=== PATIENT | female | born 1995 | race Caucasian/White ===

== ENCOUNTER 2022-07-24 13:38 | Observation (INO) ==
[2022-07-24] MEDS ORDERED: oxyCODONE HCL IR 5 MG TAB (IMMEDIATE RELEASE) PO STA (13:49)
--- NOTE | 2022-07-24 14:09 | XRay Report ---
XR hip RT min 2V CLINICAL HISTORY: R hip pain s/p fall, h/o stress fx COMPARISON: MRI of the right hip July 06, 2022. Pelvis and right hip radiographs July 17, 2022. FINDINGS: There has been interval development of an acute minimally displaced intertrochanteric frac ture of the right femur with subtrochanteric extension. The right femoral neck stress fracture is bet ter depicted on MRI of July 06, 2022. IMPRESSION: 1. Interval development of an acute minimally displaced intertrochanteric fracture of the right femur with subtrochanteric extension since radiographs of July 17, 2022. 2. Right femoral stress fracture, better depicted on MRI of July 06, 2022. ACT 112: Negative or not required by law. Electronically signed by: Sujit Schofield M.D. 07/24/2022 2:07 PM
[2022-07-24] MEDS ORDERED: ceFAZolin 2000MG 2,000 MG/15 ML SYR IV ONE (15:00)
--- NOTE | 2022-07-24 15:04 | Emergency Department Note ---
ED Provider Note History of Present Illness Chief Complaint: Leg Injury/Pain Stated Complaint: RIGHT LEG INJURY Time Seen by Provider: 07/24/22 13:43 27-year-old female who presents to the emergency department for evaluation of a repeat injury to her right hip. The patient reports that she was at a store and slipped and fell, landing directly onto her right knee. She denies any knee injury or other injuries from her fall, but complains of notable right hip pain. The patient is currently under the management of Dr. Michel ([facility]) for a right femoral neck fracture. She is currently on crutches until 08/07 when she will be reevaluated. The patient denies any pain extending into the back. Weightbearing worsens her pain to a 10 out of 10. Home Medications Medication Instructions Recorded Confirmed Type Bone Strengthing Tablet 1 tab PO DAILY 07/24/22 07/24/22 History Allergies Allergy/AdvReac Type Severity Reaction Status Date / Time No Known Allergies Allergy Verified 07/24/22 14:49 Past Med/Surg History Medical History No significant past medical history Surgical History No significant past surgical history Social History Smoking Status: Never smoker Second Hand Exposure: No; Do You Dip or Chew Tobacco: No; Hx Alcohol Use: No Hx Substance Use: No Preferred Language: Spanish Communication Ability: Effective Wax Cutter Required: No Beliefs That Will Affect Care: None marital status: Single Current Living Situation: Spouse current occupational status: employed Other Information That Helps Us Care for You: No Feels Safe at Home: Yes Safety Concerns: Feels Safe At This Time Assistive Devices: Crutches Physical Exam Vital Signs Vital Signs - 24 hr 07/24/22 13:38 07/24/22 16:13 07/24/22 18:55 Temperature 36.4 C L 36.9 C 36.1 C L Temperature Source Temporal Artery Scan Oral Temporal Artery Scan Pulse Rate 76 Pulse Rate [Apical] 101 H Pulse Rate [Left Finger] 61 Pulse Rhythm [Apical] Regular Pulse Rhythm [Left Finger] Regular Pulse Strength [Left Finger] Normal Respiratory Rate 19 97 H 12 Respiratory Effort / Characteristics Non-Labored Spontaneous Non-Labored Spontaneous Respiratory Depth Normal Normal Respiratory Pattern Regular Regular Blood Pressure 106/71 Blood Pressure [Left Arm] 116/67 Blood Pressure [Right Arm] 111/67 Blood Pressure Mean 82 Blood Pressure Mean [Left Arm] 83 Blood Pressure Mean [Right Arm] 81 Blood Pressure Position [Left Arm] Lying Blood Pressure Position [Right Arm] Lying Pulse Oximetry 99 97 100 Oxygen Delivery Method Room Air Room Air Oxymask Oxygen Flow Rate 6 Sepsis Recent Fever Within 48 Hours No Sepsis New/Unexplained Change in Mental Status N/A Sepsis Action Taken by Nursing No Action Required CONSTITUTIONAL: Healthy and well nourished. Patient appears in moderate discomfort. HEENT: Normocephalic, atraumatic. RESPIRATORY: Clear to auscultation bilaterally with no wheezing, crackles, rhonchi or stridor. CARDIOVASCULAR: Regular rate and rhythm with no murmurs, rubs or gallops. MUSCULOSKELETAL: Examination of the right hip was deferred secondary to patient discomfort. No abrasions to the knee. Pedal pulses are intact INTEGUMENTARY: No rash or other significant dermatologic conditions noted. HEMATOLOGIC: No ecchymosis or petechiae. PSYCHIATRIC: Positive affect. NEUROLOGIC: Right lower extremity is sensory intact. Course Course Patient history and physical exam were performed. Nurses notes were reviewed. Vital signs were reviewed and were normal. The patient initially was administered Oxy IR 5 mg, refusing intramuscular pain management. X-rays of the right hip confirms an intertrochanteric fracture extending to the subt rochanteric region. Radiologist also compared this x-ray with an MRI of 07/06/2022, which is not viewable by me. Findings were discussed with the patient. The patient reports that she last had something to eat around 11 AM. I then reached out to [facility], and spoke with Dr. Lynch who will come to the emergency department for further evaluation, and probable surgical repair. He did request starting IV with baseline labs. He also requested a vitamin D level, however the patient reports that she did have one recently drawn by Dr. Appiah, therefore this will be deferred. The patient refused any additional parenteral analgesics prior to transfer of care to the orthopedic service. Please see other dictation for further treatment and final disposition. I did review labs which were grossly normal. Administered Medications Acetaminophen (Acetaminophen 500 Mg Tab) 1,000 mg PO Q8 OLIVIA Stop: 08/23/22 21:59 Last Admin: 07/24/22 21:06 Dose: 1,000 mg Documented By: KSC Docusate Sodium (Docusate Sodium 100 Mg Cap) 100 mg PO BID OLIVIA Stop: 08/23/22 20:59 Last Admin: 07/24/22 20:35 Dose: Not Given Documented By: KSC Sodium Chloride (Nss 1000ml) 1,000 mls @ 100 mls/hr IV .Q10H OLIVIA Stop: 07/25/22 06:00 Last Admin: 07/24/22 20:33 Dose: 100 mls/hr Documented By: KSC Ketorolac Tromethamine (Ketorolac 30 Mg/Ml Vial) 30 mg IV Q6H OLIVIA Stop: 07/25/22 15:01 Last Admin: 07/24/22 20:31 Dose: 30 mg Documented By: KSC Sennosides (Senna 8.6 Mg Tab) 17.2 mg PO HS OLIVIA Stop: 08/23/22 20:59 Last Admin: 07/24/22 20:35 Dose: Not Given Documented By: [facility] [place] Discontinued Medications Bupivacaine HCl (Bupivacaine 0.5 % 5 Mg/1 Ml Mpf 30ml Vial) Confirm Administered Dose 30 ml .ROUTE .STK-MED ONE Stop: 07/24/22 16:38 Last Admin: 07/24/22 18:30 Dose: 30 ml Documented By: [facility] Cefazolin Sodium (Cefazolin 330 Mg/Ml 1 Gm Vial) 1,000 mg IV ONCE ONE; Protocol Stop: 07/24/22 18:30 Last Admin: 07/24/22 17:17 Dose: 1,000 mg Documented By: BLB Fentanyl Citrate (Fentanyl Citrate Pf 100 Mcg/2 Ml Vial) 25 mcg IV Q5M PRN PRN Reason: PACU Use Only-Pain Stop: 07/24/22 23:06 Last Admin: 07/24/22 19:20 Dose: 25 mcg Documented By: Admin: 07/24/22 19:15 Dose: 25 mcg Documented By: Admin: 07/24/22 19:10 Dose: 25 mcg Documented By: Admin: 07/24/22 19:05 Dose: 25 mcg Documented By: [facility] Cefazolin Sodium (Ancef 2000mg) 2,000 mg in 15 mls @ 3.75 mls/min IV PREOP ONE; Protocol Stop: 07/24/22 15:03 Last Admin: 07/24/22 15:07 Dose: 3.75 mls/min Documented By: HILDA Oxycodone HCl (Oxycodone Hcl Ir 5 Mg Tab (Immediate Release)) 5 mg PO NOW STA Stop: 07/24/22 13:50 Last Admin: 07/24/22 14:19 Dose: 5 mg Documented By: MATTHEW Medical Decision Making Medical Records Attestation: I reviewed the patient's medical records. Home Medications was personally reviewed by me Laboratory Data Attestation: I reviewed the patient's lab results. 07/24/22 14:42 07/24/22 14:42 Lab Results 07/24/22 07/24/22 07/24/22 Range/Units 14:42 14:42 14:42 WBC 5.61 (4.8-10.8) K/ul RBC 4.21 (4.20-5.40) M/uL Hgb 13.3 (12.0-16.0) g/dl Hct 37.6 (37.0-47.0) % MCV 89.3 (80.0-100.0) fL MCH 31.6 (25.0-34.0) pg MCHC 35.4 (32.0-36.0) g/dL RDW Std Deviation 37.0 (36.4-46.3) fL RDW Coeff of Taylor 11.4 L (11.5-14.5) % Plt Count 251 (130-400) K/uL MPV 9.3 L (9.4-12.4) fL PT (9.0-12.0) Seconds INR (0.9-1.1) APTT (21.0-31.0) Seconds PTT Ratio Sodium 140 (136-145) mmol/L Potassium 4.0 (3.5-5.1) mmol/L Chloride 104 (98-107) mmol/L Carbon Dioxide 29 (21-32) mmol/L Anion Gap 7 (3-11) BUN 15 (6-23) mg/dl Creatinine 0.78 (0.6-1.2) mg/dl Est Cr Clr Drug Dosing 102.3 ml/min Est GFR ( Amer) 121.6 ml/min Est GFR (Non-Af Amer) 104.9 ml/min BUN/Creatinine Ratio 19.2 (10-20) Glucose 115 H (70-99(Fasting)) mg/dl Calcium 9.9 (8.6-10.3) mg/dl Total Bilirubin 0.4 (0.2-1.0) mg/dl AST 25 (13-39) U/L ALT 12 (7-52) U/L Alkaline Phosphatase 60 (34-104) U/L Total Protein 7.6 (6.0-8.3) gm/dl Albumin 4.6 (3.4-5.0) gm/dl Globulin 3.0 (2.5-4.0) gm/dl Albumin/Globulin Ratio 1.5 (0.9-2) POC Ur Test (NEG) SARS-CoV-2, RNA, NAAT (NEGATIVE) Blood Type B Positive Antibody Screen NEGATIVE 07/24/22 07/24/22 07/24/22 Range/Units 14:42 15:08 15:48 WBC (4.8-10.8) K/ul RBC (4.20-5.40) M/uL Hgb (12.0-16.0) g/dl Hct (37.0-47.0) % MCV (80.0-100.0) fL MCH (25.0-34.0) pg MCHC (32.0-36.0) g/dL RDW Std Deviation (36.4-46.3) fL RDW Coeff of Taylor (11.5-14.5) % Plt Count (130-400) K/uL MPV (9.4-12.4) fL PT 11.1 (9.0-12.0) Seconds INR 1.0 (0.9-1.1) APTT 21.9 (21.0-31.0) Seconds PTT Ratio 0.8 Sodium (136-145) mmol/L Potassium (3.5-5.1) mmol/L Chloride (98-107) mmol/L Carbon Dioxide (21-32) mmol/L Anion Gap (3-11) BUN (6-23) mg/dl Creatinine (0.6-1.2) mg/dl Est Cr Clr Drug Dosing ml/min Est GFR ( Amer) ml/min Est GFR (Non-Af Amer) ml/min BUN/Creatinine Ratio (10-20) Glucose (70-99(Fasting)) mg/dl Calcium (8.6-10.3) mg/dl Total Bilirubin (0.2-1.0) mg/dl AST (13-39) U/L ALT (7-52) U/L Alkaline Phosphatase (34-104) U/L Total Protein (6.0-8.3) gm/dl Albumin (3.4-5.0) gm/dl Globulin (2.5-4.0) gm/dl Albumin/Globulin Ratio (0.9-2) POC Ur Test NEG (NEG) SARS-CoV-2, RNA, NAAT NEGATIVE (NEGATIVE) Blood Type Antibody Screen Imaging Data Attestation: I personally reviewed and interpreted this imaging study as follows: My Impression: My interpretation of a right hip x-ray confirms an intertrochanteric fracture extending to the subtrochanteric region. No hip dislocation noted. Radiologist report was also reviewed with concurrence. Radiologist's Impression: Hip X-Ray 07/24/22 13:49 XR hip RT min 2V CLINICAL HISTORY: R hip pain s/p fall, h/o stress fx COMPARISON: MRI of the right hip July 06, 2022. Pelvis and right hip radiographs July 17, 2022. FINDINGS: There has been interval development of an acute minimally displaced intertrochanteric fracture of the right femur with subtrochanteric extension. The right femoral neck stress fracture is better depicted on MRI of July 06, 2022. IMPRESSION: 1. Interval development of an acute minimally displaced intertrochanteric fracture of the right femur with subtrochanteric extension since radiographs of July 17, 2022. 2. Right femoral stress fracture, better depicted on MRI of July 06, 2022. ACT 112: Negative or not required by law. Electronically signed by: Sujit Schofield M.D. 07/24/2022 2:07 PM [facility] Narrative See ED Course section for further details of today's visit. The patient suffered a right hip fracture after slipping and falling onto her right anterior knee. The patient did previously have a stress fracture of the femoral neck that was being managed by Dr. Michel, and is currently on nonweightbearing status. Today's x-ray shows a new intertrochanteric fracture extending to the subtrochanteric region. The case was further discussed with Dr. Lynch, who will be taking the patient to the OR for surgical management. Impression Fracture of proximal end of right femur, Fall from slip, trip, or stumble Discharge Plan Visit Data Chief Complaint: Leg Injury/Pain Stated Complaint: RIGHT LEG INJURY ED Provider: Victor Manuel Hallman ED Midlevel Provider: Jeison Cadena Discharge Problem: Fracture of proximal end of right femur, Fall from slip, trip, or stumble Discharge Instructions Interventions: ED Discharge Assessment Last Done: 07/24/22 15:52 Fracture of proximal end of right femur Qualifiers: Encounter type: initial encounter Fracture type: closed Qualified Code(s): S72.001A - Fracture of unspecified part of neck of right femur, initial encounter for closed fracture Fall from slip, trip, or stumble Qualifiers: Encounter type: initial encounter Qualified Code(s): W01.0XXA - Fall on same level from slipping, tripping and stumbling without subsequent striking against object, initial encounter
[2022-07-24] MEDS ORDERED: ATROPINE SULFATE 0.1 MG/ML 10ML SYR IV PRN (15:06)
[2022-07-24] MEDS ORDERED: HYDROmorphone INJ 1 MG/ML SYRINGE IV PRN (15:06)
[2022-07-24] MEDS ORDERED: ePHEDrine sulfate 50 MG/ML AMP IV PRN (15:06)
[2022-07-24] MEDS ORDERED: ONDANSETRON INJ 2 MG/ML 2 ML VIAL IV PRN ×2 (15:06→20:05)
--- NOTE | 2022-07-24 15:06 | Anesthesiology Consultation ---
Date of Service July 24, 2022 Assessment & Plan (1) Encounter for pre-operative examination: Chart Review Chart Review: Acceptable Risk for Surgery and Patient NOT seen in Pre Admission Testing Consults Requested none History Surgery Operation Date: 07/24/22 12:30 Proposed Procedures p Intramedullary Bijan Right Femur Fracture - Domenic Lynch MD Height/Weight Height: 5 ft 6 in Allergies Allergy/AdvReac Type Severity Reaction Status Date / Time No Known Allergies Allergy Verified 07/24/22 14:49 Medications Home Medications Medication Instructions Recorded Confirmed Last Taken Bone Strengthing Tablet 1 tab PO DAILY 07/24/22 07/24/22 07/24/22 Past Medical History Medical History No significant past medical history Past Surgical History Surgical History No significant past surgical history Social History Smoking Status: Never smoker Physical Exam Vital Signs Last Vital Signs Temp 97.5 F L 07/24/22 13:38 Pulse 76 07/24/22 13:38 Resp 19 07/24/22 13:38 BP 106/71 07/24/22 13:38 Pulse Ox 99 07/24/22 13:38 O2 Del Method Room Air 07/24/22 13:38
[2022-07-24 15:09] LABS: Hematocrit (blood only) 37.6 % (37.0-47.0); Hemoglobin 13.3 g/dl (12.0-16.0); Mean Corpuscular Hemoglobin 31.6 pg (25.0-34.0); Mean Corpuscular Hgb Conc 35.4 g/dL (32.0-36.0); Mean Corpuscular Volume 89.3 fL (80.0-100.0); Mean Platelet Volume 9.3 fL (9.4-12.4); Platelet Count 251 K/uL (130-400); RDW Coefficient of Variation 11.4 % (11.5-14.5); Red Blood Count 4.21 M/uL (4.20-5.40); White Blood Count 5.61 K/ul (4.8-10.8)
--- NOTE | 2022-07-24 15:38 | Orthopedic Consultation ---
Date of Consultation July 24, 2022 Assessment & Plan (1) Fracture of proximal end of right femur: I discussed the x-ray findings with the patient and her significant other. Surgery was the recommended treatment for this injury since nonsurgical treatment would result in a higher risk of malunion, avascular necrosis and possible early arthritis, as well as limited mobility resulting in increased risk of blood clots. Surgical plan would be open reduction internal fixation with an intramedullary lazaro. I reviewed the risks and benefits of the surgery at length. All questions were answered. Patient elects to proceed with surgery. Informed consent was signed. Plan on proceeding to the operating room on an urgent basis. She did eat a bowl of oatmeal at 11 AM, and so has not been n.p.o. for 8 hours, however given that her clinical history is that of a displaced femoral neck stress fracture even t delon her x-rays show more of an intertrochanteric fracture, I think in order to decrease risk of avascular necrosis, it is in her best interest that we except the slightly increased risk of anesthetic complications and proceed to the operating room as soon as we are set up and ready to go. Plan on admitting the patient to the hospital overnight after surgery. History of Present Illness Reason for Consultation: Right femur fracture History of Present Illness 27-year-old female, patient of my partner Dr. Michel, has been treated for a nondisplaced right femoral neck stress fracture with nonweightbearing on crutches. She was seen as recently as a week ago at which time x-rays were showing interval healing of her fracture and she was instructed to maintain nonweightbearing on her crutches until her next follow-up evaluation. She was also find to have low vitamin D level which she has been supplementing with vitamin D3. Unfortunately around 1 PM today she was going into a nail salon when she slipped and fell directly onto her right knee. She had immediate onset of pain in her right hip. She was brought to the emergency room. X-rays were obtained demonstrating slight displacement of the fracture with extension into the subtrochanteric region. Orthopedics was consulted for evaluation and management. Patient was seen and examined in the emergency room. She reports that prior to slipping and falling she was completely pain-free in her hip. She denies any numbness or tingling down her leg. Denies any personal or family history of blood clots. She is very active working at [employer], enjoys running and playing sports and desires to get back to these activities. Allergies Allergy/AdvReac Type Severity Reaction Status Date / Time No Known Allergies Allergy Verified 07/24/22 14:49 Home Medications Medication Instructions Recorded Confirmed Type Bone Strengthing Tablet 1 tab PO DAILY 07/24/22 07/24/22 History Patient History Medical History No significant past medical history Surgical History No significant past surgical history Social History Smoking Status: Never smoker Preferred Language: Filipino marital status: Single current occupational status: employed Feels Safe at Home: Yes Review of Systems Review of Systems: Negative except as noted in the HPI. Physical Exam Physical Exam: In general she is resting comfortably in bed, tearful and somewhat anxious which is not unexpected. Alert and oriented x3. Right lower extremity exam reveals no obvious shortening or rotational abnormalities of the leg. Her skin is intact throughout. She wiggles her toes and dorsi and plantar flexes her ankle without difficulty. She is sensory intact to light touch throughout the right lower extremity. Results & Data Vital Signs (Past 12 Hours) Vital Signs Temp Pulse Resp BP Pulse Ox O2 Del Method 07/24/22 13:38 36.4 C L 76 19 106/71 99 Room Air Diagnostic Findings X-rays done today in the emergency room are reviewed. I also reviewed her previous x-rays and MRI. On her current films she has what appears to be a intertrochanteric femur fracture with subtrochanteric extension and mild displacement. However on her previous MRI the fracture was more into the femoral neck region rather than the intertrochanteric region.
[2022-07-24 15:39] LABS: Albumin Globulin Ratio 1.5 (0.9-2); Albumin Level 4.6 gm/dl (3.4-5.0); BUN Creatinine Ratio 19.2 (10-20); Bilirubin,Total 0.4 mg/dl (0.2-1.0); Calcium 9.9 mg/dl (8.6-10.3); Creatinine Clr Calc Pharmacy 102.3 ml/min; Est GFR (African American) 121.6 ml/min; Est GFR (Non-African American) 104.9 ml/min; Total Protein 7.6 gm/dl (6.0-8.3)
[2022-07-24] MEDS ORDERED: MIDAZOLAM HCL 1 MG/ML 2ML VIAL ONE (15:58)
[2022-07-24] MEDS ORDERED: ROCURONIUM BROMIDE 10 MG/ML 5 ML VIAL IV ONE (15:58)
[2022-07-24] MEDS ORDERED: fentaNYL citrate PF 100 MCG/2 ML VIAL ONE ×2 (15:58→18:39)
[2022-07-24] MEDS ORDERED: ONDANSETRON INJ 2 MG/ML 2 ML VIAL ONE ×2 (15:58→18:02)
[2022-07-24] MEDS ORDERED: LIDOCAINE 2% 2 ML VIAL/AMP(20MG/ML) INFIL ONE (15:58)
[2022-07-24] MEDS ORDERED: SUCCINYLCHOLINE CHLORIDE 20 MG/ML 10 ML VIAL IV ONE (15:58)
[2022-07-24] MEDS ORDERED: PROPOFOL IV EMULSION 10 MG/ML 20 ML VIAL IV ONE (15:58)
[2022-07-24] MEDS ORDERED: DEXAMETHASONE SOD INJ 4 MG/ML VIAL ONE (15:58)
[2022-07-24] MEDS ORDERED: BUPIVACAINE 0.5 % 5 MG/1 ML MPF 30ML VIAL ONE (16:37)
[2022-07-24] MEDS ORDERED: PHENYLEPHRINE 100MCG/ML 5ML SYR ONE (18:02)
[2022-07-24] MEDS ORDERED: GLYCOPYRROLATE 0.2 MG/ML VIAL ONE (18:21)
[2022-07-24] MEDS ORDERED: NEOSTIGMINE METHYLSULFATE 1 MG/ML 10ML VIAL ONE (18:21)
[2022-07-24] MEDS ORDERED: ceFAZolin 330 MG/ML 1 GM VIAL IV ONE (18:29)
--- NOTE | 2022-07-24 18:46 | Operative Report ---
Post Operative Report Pre & Post Diagnosis Operation Date: 07/24/22 12:30 Preoperative diagnosis: Displaced right femoral neck stress fracture with intertrochanteric and subtrochanteric extension Postoperative diagnosis: Displaced right femoral neck stress fracture with intertrochanteric and subtrochanteric extension I identified the patient and participated in the time-out.: Yes Procedure Operation Date: 07/24/22 12:30 Open reduction internal fixation Displaced right femoral neck stress fracture with intertrochanteric and subtrochanteric extension using an intramedullary lazaro Surgeon Domenic Lynch MD Mirror Framer Benjamín Gibson PA-C Estimated Blood Loss 25 Findings Consistent with Post-Op Diagnosis Specimens None Anesthesia Type General Complications none Disposition Disposition: Recovery Room Indications 27-year-old female, being treated for a nondisplaced right femoral neck stress fracture on crutches nonweightbearing, slipped and fell today around 1 PM. She had immediate onset of right hip pain. Brought to the emergency room where x- rays demonstrated displacement of her femoral neck stress fracture with intertrochanteric and subtrochanteric extension. I had a long discussion with the patient and her significant other regarding the diagnosis and treatment options. She understands that this particular fracture is at risk for avascular necrosis of the femoral head with subsequent hip arthritis. Surgery is recommended to reduce and fixate her fracture. After reviewing all the risks and benefits of surgery, alternatives, and expected outcomes, she elected to proceed. All questions were answered. Informed consent was signed. Description of Procedure Patient was identified in the emergency room where her surgical site was marked. She was brought back to the main operating room where general anesthesia was induced on the hospital bed using rapid sequence intubation given that the patient was not a full 8 hours n.p.o. until the time of surgery. Intravenous cefazolin was given for perioperative antibiotics. She was then carefully moved onto the operating room table. The operative right foot and ankle were padded with ABD pads and web roll and then secured in the traction boot. The non operative hip was flexed and AB ducted to facilitate fluoroscopic imaging. Fluoroscopy was then brought in and we were able to obtain a near anatomic reduction of the fracture. Because the main fracture line appeared to be intertrochanteric and subtrochanteric, this reduction was deemed acceptable and I decided that the risks of performing an open reduction internal fixation were not warranted. The operative hip was then prepped and draped in the usual sterile fashion. Prior to incision a multidisciplinary timeout was called. All in the room were in agreement. I began by marking out on the skin and the appropriate starting point using AP and lateral fluoroscopic imaging. A 3 cm incision was then made approximately 3 fingerbreadths above the tip of the greater trochanter. A K wire was then passed through the incision and the optimal starting position for a trochanteric nail was determined on the AP and lateral fluoroscopic views. K wire was then driven down to the level of the lesser trochanter. A knife was used to incise along the trochanter through the fascia to facilitate placement of the opening reamer and guide. The opening reamer was then used over the top of the K wire. The K wire was removed and a ball-tipped guidewire was then inserted down the intramedullary canal all the way to the level of the superior aspect of the patella. This measured 375 mm. I therefore elected to use a 360 mm long nail. I then began sequentially reaming starting with an 8.5 mm reamer. I reamed up by half millimeter increments all the way up to 11 mm which gave me nice cortic al chatter at the isthmus. A 10 mm diameter nail measuring 360 mm for a right femur was then opened up and attached to the insertion handle. The nail was then driven down using a mallet to the appropriate position in the femur. We then attached the 130 degree aiming arm to the insertion handle. A long-handle knife was then used to make a stab incision in the lateral aspect of the femur through the fascia down to bone. The guide for the helical blade was then inserted through the incision and placed down onto the lateral cortex of the femur. The guidewire was then driven up into the femoral head center center position on the AP and lateral fluoroscopic views. This measured 94 mm. I elected to use an 85 mm helical blade to allow for compression of the fracture. The cortical opening reamer was used followed by the step reamer. The helical blade was then inserted up into the femoral head. Once he was at the appropriate position we were then able to compress the fracture by turning the dial of the outrigger device. Once this was appropriately compressed I then used a screwdriver to advance the screw from the top of the nail down onto the helical blade which was then backed off a half a turn to allow for compression through the fracture site. The outrigger device was then removed. AP and lateral fluoroscopic views were checked and we are very happy with the position of her helical blade and the reduction of the fracture. Next we turned our attention to the distal cross lock screw. Traction was removed from the femur and the operative leg was Abducted. Using perfect circles technique a single static 5 mm diameter cross lock screw was placed which measured 36 mm. Excellent fixation was obtained. At this point her final fluoroscopic images were obtained. We were very happy with the position of her hardware as well as our screw lengths and our reduction. Wounds were irrigated out with copious amounts of normal saline. Incisions were closed using 2-0 Vicryl in the deep dermal layer and 3-0 Monocryl in subcuticular running fashion for the skin. 30 cc of half percent Marcaine was then injected in the subcutaneous tissues for postoperative pain control. Dermabond and Steri-Strips were applied followed by sterile dressings. Patient was then awoke from anesthesia and transferred recovery room in stable condition. Postoperative course: Patient will be admitted overnight for IV antibiotics and pain control. She will work with physical therapy tomorrow. She will be 50% partial weightbearing on crutches. Aspirin for DVT prophylaxis. I attest to the content of the Intraoperative Record and any orders documented therein. Any exceptions are noted below.
--- NOTE | 2022-07-24 18:57 | Operative Report ---
Post Operative Report Pre & Post Diagnosis Operation Date: 07/24/22 12:30 Pre-Op Diagnosis: Fracture of proximal end of right femur Post-Op Diagnosis: Fracture of proximal end of right femur I identified the patient and participated in the time-out.: Yes Procedure Operation Date: 07/24/22 12:30 Actual Procedures p Intramedullary B[place] Right Femur Fracture(Right) - Domenic Lynch MD Surgeon ARBEN Lynch MD Plastic Surgery Technician Benjamín Gibson PA-C Estimated Blood Loss 25 Findings Consistent with Post-Op Diagnosis see operative report Specimens none Drains none Complications none Disposition Accompanied Patient To Recovery: Yes Indications This 27 year old female presented through the ED for evaluation of right hip pain after a fall. She has a history of previous stress fracture of the femoral neck. She elected to proceed with surgical intervention after being educated about potential risks and outcomes. Preoperative imaging was obtained. Description of Procedure The patient was taken the operating room where she was given general anesthesia. She was prepped and draped in the usual sterile fashion. Please see Dr. Lynch's operative report for specifics of the procedure. I was present for the entire case from initial patient positioning through final wound closure. Assistance was provided in tissue retraction, hemostasis, hardware placement, and final wound closure. The patient was taken to the recovery room in satisfactory condition. I attest to the content of the Intraoperative Record and any orders documented therein. Any exceptions are noted below.
[2022-07-24] MEDS: fentaNYL citrate PF 100 MCG/2 ML VIAL IV PRN ×4 (19:05→19:20)
[2022-07-24 19:22] LABS: Partial Thromboplastin Ratio 0.8; Partial Thromboplastin Time 21.9 Seconds (21.0-31.0); Prothrombin Time 11.1 Seconds (9.0-12.0)
--- NOTE | 2022-07-24 19:41 | Anesthesiology Progress Note ---
Date of Service July 24, 2022 Anesthesia Post Procedure Vital Signs Vital Signs: Temp Pulse Pulse Pulse Resp BP BP 07/24/22 19:35 97.5 F L 62 24 07/24/22 19:25 67 12 07/24/22 19:15 70 13 07/24/22 19:05 76 14 07/24/22 18:55 97.0 F L 101 H 12 07/24/22 16:13 98.4 F 61 97 H 116/67 07/24/22 13:38 97.5 F L 76 19 106/71 BP Pulse Ox O2 Del Method O2 Flow Rate 07/24/22 19:35 116/69 97 Room Air 07/24/22 19:25 125/69 97 Room Air 07/24/22 19:15 119/62 97 Room Air 07/24/22 19:05 126/59 L 100 Room Air 07/24/22 18:55 111/67 100 Oxymask 6 07/24/22 16:13 97 Room Air 07/24/22 13:38 99 Room Air Pain Intensity Right Hip: Pain Intensity: 6 Transfer of Care Handoff Completed per policy Notes Mental Status: alert / awake / arousable and participated in evaluation Patient Amnestic to Procedure: Yes Nausea / Vomiting: adequately controlled Pain: adequately controlled Airway Patency, RR, SpO2: stable & adequate BP & HR: stable & adequate Hydration State: stable & adequate Anesthetic Complications: no major complications apparent and Pt Satisfied with anesthetic care
[2022-07-24] MEDS ORDERED: diphenhydrAMINE 50 MG/ML VIAL IV PRN (20:05)
[2022-07-24] MEDS ORDERED: SODIUM CHLORIDE 0.9% 1000ML 1,000 ML IV SCH (20:05)
[2022-07-24] MEDS ORDERED: MAGNESIUM HYDROXIDE SUSP 30 ML UDC PO PRN (20:05)
[2022-07-24] MEDS ORDERED: oxyCODONE HCL IR 5 MG TAB (IMMEDIATE RELEASE) PO PRN (20:05)
[2022-07-24] MEDS ORDERED: bisacodyL 10 MG SUPP PR PRN (20:05)
[2022-07-24] MEDS ORDERED: METOCLOPRAMIDE HCL INJ 5 MG/ML 2 ML VIAL IV PRN (20:05)
[2022-07-24] MEDS ORDERED: NALOXONE HCL 0.4 MG/1 ML VIAL/CARP IV PRN (20:05)
[2022-07-24] MEDS ORDERED: ALUMINUM/MAGNESIUM SUSP 30 ML UDC PO PRN (20:05)
[2022-07-24] MEDS ORDERED: HYDROmorphone INJ 0.5 MG/0.5 ML SYR IV PRN (20:05)
[2022-07-24] MEDS: KETOROLAC 30 MG/ML VIAL IV SCH (20:31)
[2022-07-24] MEDS: DOCUSATE SODIUM 100 MG CAP PO SCH (20:35)
[2022-07-24] MEDS ORDERED: SENNA 8.6 MG TAB PO SCH (21:00)
[2022-07-24] MEDS: ACETAMINOPHEN 500 MG TAB PO SCH (21:06)
[2022-07-25] MEDS: ceFAZolin 2000MG 2,000 MG/15 ML SYR IV SCH ×2 (00:01→09:12)
[2022-07-25] MEDS: KETOROLAC 30 MG/ML VIAL IV SCH ×2 (02:05→08:56)
[2022-07-25] MEDS: ACETAMINOPHEN 500 MG TAB PO SCH ×2 (05:05→13:03)
[2022-07-25] MEDS ORDERED: FERROUS GLUCONATE 324 MG TAB PO SCH (08:00)
[2022-07-25] MEDS ORDERED: ASCORBIC ACID 500 MG TAB PO SCH (08:00)
--- NOTE | 2022-07-25 08:11 | Fluoroscopy Report ---
FL femur RT 2V CLINICAL HISTORY: RT TROCH NAIL COMPARISON STUDY: Radiographs 07/24/2022 FLUOROSCOPY TIME: 170.8 seconds FLUOROSCOPY IMAGES: 5 EXPOSURE DOSE: 28.52 mGy FINDINGS: Intratrochanteric nail with medullary lazaro fixates the acute proximal right femoral fracture . There is improved near anatomic alignment. Expected postoperative soft tissue swelling with deep ti ssue air. IMPRESSION: Fluoroscopic assistance as above. ACT 112: Negative or not required by law. Electronically signed by: Estuardo Bernal M.D. 07/25/2022 8:08 AM
--- NOTE | 2022-07-25 08:12 | XRay Report ---
XR femur RT 2V routine HISTORY: 27 years-old Female post op, in PACU, include all of implant COMPARISON: 07/24/2022 TECHNIQUE: 2 views of the right femur FINDINGS: Status post placement of an intertrochanteric nail with medullary lazaro fixating the acute intertrochan teric and subtrochanteric right femoral fracture. Mildly improved alignment. Expected postoperative s oft tissue swelling with deep tissue air. IMPRESSION: Expected postoperative changes status post ORIF. ACT 112: Negative or not required by law. The above report was generated using voice recognition software. It may contain grammatical, syntax o r spelling errors. Electronically signed by: Estuardo Bernal M.D. 07/25/2022 8:11 AM
[2022-07-25 08:49] LABS: Hemoglobin 10.3 g/dl (12.0-16.0); Mean Corpuscular Hemoglobin 31.3 pg (25.0-34.0); Mean Corpuscular Hgb Conc 34.3 g/dL (32.0-36.0); Mean Corpuscular Volume 91.2 fL (80.0-100.0); Mean Platelet Volume 9.6 fL (9.4-12.4); Platelet Count 217 K/uL (130-400); RDW Coefficient of Variation 11.3 % (11.5-14.5); RDW Standard Deviation 37.6 fL (36.4-46.3); Red Blood Count 3.29 M/uL (4.20-5.40); White Blood Count 9.45 K/ul (4.8-10.8)
--- NOTE | 2022-07-25 08:49 | Orthopedic Progress Note ---
Date of Service July 25, 2022 Assessment & Plan (1) Fracture of proximal end of right femur: Plan: Patient is postop day #1, status post a right anterior trochanteric nail fixation Patient is doing well as anticipated. Patient will participate in PT and OT. She is 50% partial weightbearing on the right lower extremity with crutches. Patient has crutches at home Anticipate patient being discharged home today. This will be dependent on safety and pain being controlled. Order was placed for removal of catheter. If able to urinate she will be discharged We discussed pain control including ice, [id number] analgesics, and narcotic. Patient will be discharged with narcotic and may supplement with [id number] analgesics. Tylenol can be taken as directed not to exceed 3000 mg in 24 hours. Diclofenac will be prescribed to take twice a day for the next 30 days. She will be on an 81 mg aspirin twice a day for 30 days for DVT prophylaxis. She will follow-up on 08/[address] Lynch in our outpatient office. Patient is aware. I will discuss with Dr. Mackenzie off of patient needs outpatient therapy and this will be arranged for her. Patient had time to ask questions and questions were answered to their satisfaction. She was advised she has any concerns question or change in symptoms to contact the office. Patient verbalized understanding and is in agreement with plan. Present on Admission?: Yes Admission and Anticipated Discharge Date Admission Date: July 24, 2022 Subjective Patient is a 27-year-old female who is postop day 1 status post a right ORIF intratrochanteric nail fixation with Dr. Mackenzie off. She was seen bedside this AM. She is sitting up pleasant and conversive. She is not in any acute distress. She states she has achiness and throbbing in the right hip. She reports the last time she had pain medication was at 2 AM. She feels this nauseated her. She would like to eat breakfast prior to get another dose of medication. She is utilizing ice and feels this helps. She denies any fever, chills vomiting abdominal pain chest pain shortness of breath or dizziness. She offers no concerns this AM. Review of Systems Review of Systems: Please refer to HPI Physical Exam Physical Exam: General: Patient is alert and oriented x3 no acute distress pleasant and conversive Integumentary/musculoskeletal: Dressings are intact clean and dry negative for drainage or soiling. Negative for edema or ecchymosis over the right lower extremity. She is able to tolerate gentle knee range of motion to approximately 90 degrees flexion has full extension. She tolerates hip flexion and internal/external rotation passively with min discomfort in the groin. This is to be anticipated. She is able to actively dorsiflex and plantarflex ankle. Her calf is soft and nontender. She is unable to do a straight leg raise without assistance. Dorsal pedis pulses 3. Sensation is intact to light touch over right lower extremity. Results & Data Vital Signs (Past 12 Hours) Vital Signs Temp Pulse Resp BP BP Pulse Ox O2 Del Method 07/25/22 07:13 36.8 C 65 16 111/50 L 99 Room Air 07/25/22 02:10 37.1 C 76 16 100/58 L 97 Room Air 07/24/22 22:57 36.9 C 91 H 16 100/64 98 Room Air 07/24/22 22:00 36.4 C L 67 18 115/66 99 Room Air 07/24/22 21:00 36.3 C L 65 18 112/66 98 Room Air Laboratory Results 07/25/22 07/25/22 07/24/22 Range/Units 07:38 07:38 15:48 WBC Pending (4.8-10.8) K/ul RBC Pending (4.20-5.40) M/uL Hgb Pending (12.0-16.0) g/dl Hct Pending (37.0-47.0) % MCV Pending (80.0-100.0) fL MCH Pending (25.0-34.0) pg MCHC Pending (32.0-36.0) g/dL RDW Std Deviation (36.4-46.3) fL RDW Coeff of Taylor (11.5-14.5) % Plt Count Pending (130-400) K/uL MPV (9.4-12.4) fL PT (9.0-12.0) Seconds INR (0.9-1.1) APTT (21.0-31.0) Seconds PTT Ratio Sodium Pending (136-145) mmol/L Potassium Pending (3.5-5.1) mmol/L Chloride Pending (98-107) mmol/L Carbon Dioxide Pending (21-32) mmol/L Anion Gap Pending (3-11) BUN Pending (6-23) mg/dl Creatinine Pending (0.6-1.2) mg/dl Est Cr Clr Drug Dosing Pending ml/min Est GFR ( Amer) Pending ml/min Est GFR (Non-Af Amer) Pending ml/min BUN/Creatinine Ratio Pending (10-20) Glucose Pending (70-99(Fasting)) mg/dl Calcium Pending (8.6-10.3) mg/dl Total Bilirubin (0.2-1.0) mg/dl AST (13-39) U/L ALT (7-52) U/L Alkaline Phosphatase (34-104) U/L Total Protein (6.0-8.3) gm/dl Albumin (3.4-5.0) gm/dl Globulin (2.5-4.0) gm/dl Albumin/Globulin Ratio (0.9-2) POC Ur Test NEG (NEG) SARS-CoV-2, RNA, NAAT (NEGATIVE) Blood Type Antibody Screen 07/24/22 07/24/22 07/24/22 Range/Units 15:08 14:42 14:42 WBC (4.8-10.8) K/ul RBC (4.20-5.40) M/uL Hgb (12.0-16.0) g/dl Hct (37.0-47.0) % MCV (80.0-100.0) fL MCH (25.0-34.0) pg MCHC (32.0-36.0) g/dL RDW Std Deviation (36.4-46.3) fL RDW Coeff of Taylor (11.5-14.5) % Plt Count (130-400) K/uL MPV (9.4-12.4) fL PT 11.1 (9.0-12.0) Seconds INR 1.0 (0.9-1.1) APTT 21.9 (21.0-31.0) Seconds PTT Ratio 0.8 Sodium 140 (136-145) mmol/L Potassium 4.0 (3.5-5.1) mmol/L Chloride 104 (98-107) mmol/L Carbon Dioxide 29 (21-32) mmol/L Anion Gap 7 (3-11) BUN 15 (6-23) mg/dl Creatinine 0.78 (0.6-1.2) mg/dl Est Cr Clr Drug Dosing 102.3 ml/min Est GFR ( Amer) 121.6 ml/min Est GFR (Non-Af Amer) 104.9 ml/min BUN/Creatinine Ratio 19.2 (10-20) Glucose 115 H (70-99(Fasting)) mg/dl Calcium 9.9 (8.6-10.3) mg/dl Total Bilirubin 0.4 (0.2-1.0) mg/dl AST 25 (13-39) U/L ALT 12 (7-52) U/L Alkaline Phosphatase 60 (34-104) U/L Total Protein 7.6 (6.0-8.3) gm/dl Albumin 4.6 (3.4-5.0) gm/dl Globulin 3.0 (2.5-4.0) gm/dl Albumin/Globulin Ratio 1.5 (0.9-2) POC Ur Test (NEG) SARS-CoV-2, RNA, NAAT NEGATIVE (NEGATIVE) Blood Type Antibody Screen 07/24/22 07/24/22 Range/Units 14:42 14:42 WBC 5.61 (4.8-10.8) K/ul RBC 4.21 (4.20-5.40) M/uL Hgb 13.3 (12.0-16.0) g/dl Hct 37.6 (37.0-47.0) % MCV 89.3 (80.0-100.0) fL MCH 31.6 (25.0-34.0) pg MCHC 35.4 (32.0-36.0) g/dL RDW Std Deviation 37.0 (36.4-46.3) fL RDW Coeff of Taylor 11.4 L (11.5-14.5) % Plt Count 251 (130-400) K/uL MPV 9.3 L (9.4-12.4) fL PT (9.0-12.0) Seconds INR (0.9-1.1) APTT (21.0-31.0) Seconds PTT Ratio Sodium (136-145) mmol/L Potassium (3.5-5.1) mmol/L Chloride (98-107) mmol/L Carbon Dioxide (21-32) mmol/L Anion Gap (3-11) BUN (6-23) mg/dl Creatinine (0.6-1.2) mg/dl Est Cr Clr Drug Dosing ml/min Est GFR ( Amer) ml/min Est GFR (Non-Af Amer) ml/min BUN/Creatinine Ratio (10-20) Glucose (70-99(Fasting)) mg/dl Calcium (8.6-10.3) mg/dl Total Bilirubin (0.2-1.0) mg/dl AST (13-39) U/L ALT (7-52) U/L Alkaline Phosphatase (34-104) U/L Total Protein (6.0-8.3) gm/dl Albumin (3.4-5.0) gm/dl Globulin (2.5-4.0) gm/dl Albumin/Globulin Ratio (0.9-2) POC Ur Test (NEG) SARS-CoV-2, RNA, NAAT (NEGATIVE) Blood Type B Positive Antibody Screen NEGATIVE Diagnostic Findings Femur X-Ray 07/24/22 00:00 FL femur RT 2V CLINICAL HISTORY: RT TROCH NAIL COMPARISON STUDY: Radiographs 07/24/2022 FLUOROSCOPY TIME: 170.8 seconds FLUOROSCOPY IMAGES: 5 EXPOSURE DOSE: 28.52 mGy FINDINGS: Intratrochanteric nail with medullary lazaro fixates the acute proximal right femoral fracture. There is improved near anatomic alignment. Expected postoperative soft tissue swelling with deep tissue air. IMPRESSION: Fluoroscopic assistance as above. ACT 112: Negative or not required by law. Electronically signed by: Estuardo Bernal M.D. 07/25/2022 8:08 AM Hip X-Ray 07/24/22 13:49 XR hip RT min 2V CLINICAL HISTORY: R hip pain s/p fall, h/o stress fx COMPARISON: MRI of the right hip July 06, 2022. Pelvis and right hip radiographs July 17, 2022. FINDINGS: There has been interval development of an acute minimally displaced intertrochanteric fracture of the right femur with subtrochanteric extension. The right femoral neck stress fracture is better depicted on MRI of July 06, 2022. IMPRESSION: 1. Interval development of an acute minimally displaced intertrochanteric fracture of the right femur with subtrochanteric extension since radiographs of July 17, 2022. 2. Right femoral stress fracture, better depicted on MRI of July 06, 2022. ACT 112: Negative or not required by law. Electronically signed by: Sujit Schofield M.D. 07/24/2022 2:07 PM Femur X-Ray 07/24/22 19:05 XR femur RT 2V routine HISTORY: 27 years-old Female post op, in PACU, include all of implant COMPARISON: 07/24/2022 TECHNIQUE: 2 views of the right femur FINDINGS: Status post placement of an intertrochanteric nail with medullary lazaro fixating the acute intertrochanteric and subtrochanteric right femoral fracture. Mildly improved alignment. Expected postoperative soft tissue swelling with deep tissue air. IMPRESSION: Expected postoperative changes status post ORIF. ACT 112: Negative or not required by law. The above report was generated using voice recognition software. It may contain grammatical, syntax or spelling errors. Electronically signed by: Estuardo Bernal M.D. 07/25/2022 8:11 AM (1) Fracture of proximal end of right femur Encounter type: initial encounter Fracture type: closed Qualified Code(s): S72.001A - Fracture of unspecified part of neck of right femur, initial encounter for closed fracture
[2022-07-25 08:53] LABS: BUN Creatinine Ratio 17.7 (10-20); Creatinine Clr Calc Pharmacy 128.7 ml/min; Est GFR (African American) 144.2 ml/min; Est GFR (Non-African American) 124.4 ml/min; Potassium 4.1 mmol/L (3.5-5.1)
[2022-07-25] MEDS: DOCUSATE SODIUM 100 MG CAP PO SCH (08:55)
[2022-07-25] MEDS ORDERED: ASPIRIN 325 MG ECTAB PO SCH (09:00)
[2022-07-25] MEDS ORDERED: MULTIVITAMIN TAB PO SCH (09:00)
--- NOTE | 2022-07-25 10:54 | Discharge Summary ---
Date of Service July 25, 2022 Admission HPI Per Admitting Provider Patient is a 27-year-old who has a history of a right hip stress fracture that has been treated conservatively with Dr. Michel. She was seen on 07/24/2022 in the ED due to falling and had increased pain in the right hip. It was discovered that she had acute minimally displaced intertrochanteric fracture of the right femur with subtrochanteric extension. Surgical intervention was recommended with a intramedullary bijan. She was taken to the operating room on 07/24/[address] Lynch Admission Exam (Per Admitting) Constitutional no acute distress and not cachectic ENMT Mouth: no dentition abnormality Mallampati Class: II Neck normal visual inspection and trachea midline; neck extension not limited Respiratory normal respiratory effort; no respiratory distress Auscultation: lungs clear to auscultation bilaterally Cardiovascular Rate/Rhythm: regular rate and regular rhythm Heart Sounds: no murmur Musculoskeletal Spine: normal cervical ROM and no pain with cervical ROM Extremities: + limited ROM of extremities Neurologic moves all extremities Motor/Sensory: no sensory deficit Psychiatric Orientation: alert and oriented x 3 Specialty Data Orthopedic Current Inpatient Medications Acetaminophen (Acetaminophen 500 Mg Tab) 1,000 mg PO Q8 OLIVIA Stop: 08/23/22 21:59 Last Admin: 07/25/22 05:05 Dose: 1,000 mg Al Hydrox/Mg Hydrox/Simethicone (Aluminum/Magnesium Susp 30 Ml Udc) 15 ml PO Q4H PRN PRN Reason: Heartburn Stop: 08/23/22 20:04 Ascorbic Acid (Ascorbic Acid 500 Mg Tab) 500 mg PO BIDM [facility] Stop: 08/24/22 07:59 Last Admin: 07/25/22 08:55 Dose: 500 mg Aspirin (Aspirin 325 Mg Ectab) 325 mg PO BID OLIVIA Stop: 08/24/22 08:59 Last Admin: 07/25/22 08:55 Dose: 325 mg Bisacodyl (Bisacodyl 10 Mg Supp) 10 mg AR DAILY PRN PRN Reason: Constipation Stop: 08/23/22 20:04 Diphenhydramine HCl (Diphenhydramine 50 Mg/Ml Vial) 25 mg IV Q8H PRN PRN Reason: Itching Stop: 08/23/22 20:04 Docusate Sodium (Docusate Sodium 100 Mg Cap) 100 mg PO BID [facility] Stop: 08/23/22 20:59 Last Admin: 07/25/22 08:55 Dose: 100 mg Ferrous Gluconate (Ferrous Gluconate 324 Mg Tab) 324 mg PO BIDM [facility] Stop: 08/24/22 07:59 Last Admin: 07/25/22 08:55 Dose: 324 mg Hydromorphone HCl (Hydromorphone Inj 0.5 Mg/0.5 Ml Syr) 0.5 mg IV Q2H PRN PRN Reason: Pain or Pre PT Stop: 08/07/22 20:04 Ketorolac Tromethamine (Ketorolac 30 Mg/Ml Vial) 30 mg IV Q6H [facility] Stop: 07/25/22 15:01 Last Admin: 07/25/22 08:56 Dose: 30 mg Magnesium Hydroxide (Magnesium Hydroxide Susp 30 Ml Udc) 30 ml PO Q6H PRN PRN Reason: Constipation Stop: 08/23/22 20:04 Metoclopramide HCl (Metoclopramide Hcl Inj 5 Mg/Ml 2 Ml Vial) 10 mg IV Q6H PRN PRN Reason: Nausea And Vomiting Stop: 08/23/22 20:04 Multivitamins (Multivitamin Tab) 1 tab PO QAM [facility] Stop: 08/24/22 08:59 Last Admin: 07/25/22 08:54 Dose: 1 tab Naloxone HCl (Naloxone Hcl 0.4 Mg/1 Ml Vial/Carp) 0.1 mg IV Q5M PRN PRN Reason: Oversedation/Resp Depression Stop: 08/23/22 20:04 Ondansetron HCl (Ondansetron Inj 2 Mg/Ml 2 Ml Vial) 4 mg IV Q6H PRN PRN Reason: Nausea And Vomiting Stop: 08/23/22 20:04 Last Admin: 07/25/22 09:03 Dose: 4 mg Oxycodone HCl (Oxycodone Hcl Ir 5 Mg Tab (Immediate Release)) 5 - 10 mg PO Q4H PRN PRN Reason: Pain or Pre PT Stop: 08/07/22 20:04 Last Admin: 07/25/22 09:03 Dose: 10 mg Femur X-Ray 07/24/22 00:00 FL femur RT 2V CLINICAL HISTORY: RT TROCH NAIL COMPARISON STUDY: Radiographs 07/24/2022 FLUOROSCOPY TIME: 170.8 seconds FLUOROSCOPY IMAGES: 5 EXPOSURE DOSE: 28.52 mGy FINDINGS: Intratrochanteric nail with medullary bijan fixates the acute proximal right femoral fracture. There is improved near anatomic alignment. Expected postoperative soft tissue swelling with deep tissue air. IMPRESSION: Fluoroscopic assistance as above. ACT 112: Negative or not required by law. Electronically signed by: Estuardo Bernal M.D. 07/25/2022 8:08 AM Hip X-Ray 07/24/22 13:49 XR hip RT min 2V CLINICAL HISTORY: R hip pain s/p fall, h/o stress fx COMPARISON: MRI of the right hip July 06, 2022. Pelvis and right hip radiographs July 17, 2022. FINDINGS: There has been interval development of an acute minimally displaced intertrochanteric fracture of the right femur with subtrochanteric extension. The right femoral neck stress fracture is better depicted on MRI of July 06, 2022. IMPRESSION: 1. Interval development of an acute minimally displaced intertrochanteric fracture of the right femur with subtrochanteric extension since radiographs of July 17, 2022. 2. Right femoral stress fracture, better depicted on MRI of July 06, 2022. ACT 112: Negative or not required by law. Electronically signed by: Sujit Schofield M.D. 07/24/2022 2:07 PM Femur X-Ray 07/24/22 19:05 XR femur RT 2V routine HISTORY: 27 years-old Female post op, in PACU, include all of implant COMPARISON: 07/24/2022 TECHNIQUE: 2 views of the right femur FINDINGS: Status post placement of an intertrochanteric nail with medullary bijan fixating the acute intertrochanteric and subtrochanteric right femoral fracture. Mildly improved alignment. Expected postoperative soft tissue swelling with deep tissue air. IMPRESSION: Expected postoperative changes status post ORIF. ACT 112: Negative or not required by law. The above report was generated using voice recognition software. It may contain grammatical, syntax or spelling errors. Electronically signed by: Estuardo Bernal M.D. 07/25/2022 8:11 AM Sennosides (Senna 8.6 Mg Tab) 17.2 mg PO HS OLIVIA Stop: 08/23/22 20:59 Last Admin: 07/24/22 20:35 Dose: Not Given 06/07/25/22 07/24/22 Range/Units 07:38 07:38 15:48 WBC 9.45 (4.8-10.8) K/ul RBC 3.29 L (4.20-5.40) M/uL Hgb 10.3 L D (12.0-16.0) g/dl Hct 30.0 L (37.0-47.0) % MCV 91.2 (80.0-100.0) fL MCH 31.3 (25.0-34.0) pg MCHC 34.3 (32.0-36.0) g/dL RDW Std Deviation 37.6 (36.4-46.3) fL RDW Coeff of Taylor 11.3 L (11.5-14.5) % Plt Count 217 (130-400) K/uL MPV 9.6 (9.4-12.4) fL PT (9.0-12.0) Seconds INR (0.9-1.1) APTT (21.0-31.0) Seconds PTT Ratio Sodium 136 (136-145) mmol/L Potassium 4.1 (3.5-5.1) mmol/L Chloride 105 (98-107) mmol/L Carbon Dioxide 25 (21-32) mmol/L Anion Gap 6 (3-11) BUN 11 (6-23) mg/dl Creatinine 0.62 (0.6-1.2) mg/dl Est Cr Clr Drug Dosing 128.7 ml/min Est GFR ( Amer) 144.2 ml/min Est GFR (Non-Af Amer) 124.4 ml/min BUN/Creatinine Ratio 17.7 (10-20) Glucose 116 H (70-99(Fasting)) mg/dl Calcium 9.0 (8.6-10.3) mg/dl Total Bilirubin (0.2-1.0) mg/dl AST (13-39) U/L ALT (7-52) U/L Alkaline Phosphatase (34-104) U/L Total Protein (6.0-8.3) gm/dl Albumin (3.4-5.0) gm/dl Globulin (2.5-4.0) gm/dl Albumin/Globulin Ratio (0.9-2) POC Ur Test NEG (NEG) SARS-CoV-2, RNA, NAAT (NEGATIVE) Blood Type Antibody Screen 07/24/22 07/24/22 07/24/22 Range/Units 15:08 14:42 14:42 WBC (4.8-10.8) K/ul RBC (4.20-5.40) M/uL Hgb (12.0-16.0) g/dl Hct (37.0-47.0) % MCV (80.0-100.0) fL MCH (25.0-34.0) pg MCHC (32.0-36.0) g/dL RDW Std Deviation (36.4-46.3) fL RDW Coeff of Taylor (11.5-14.5) % Plt Count (130-400) K/uL MPV (9.4-12.4) fL PT 11.1 (9.0-12.0) Seconds INR 1.0 (0.9-1.1) APTT 21.9 (21.0-31.0) Seconds PTT Ratio 0.8 Sodium 140 (136-145) mmol/L Potassium 4.0 (3.5-5.1) mmol/L Chloride 104 (98-107) mmol/L Carbon Dioxide 29 (21-32) mmol/L Anion Gap 7 (3-11) BUN 15 (6-23) mg/dl Creatinine 0.78 (0.6-1.2) mg/dl Est Cr Clr Drug Dosing 102.3 ml/min Est GFR ( Amer) 121.6 ml/min Est GFR (Non-Af Amer) 104.9 ml/min BUN/Creatinine Ratio 19.2 (10-20) Glucose 115 H (70-99(Fasting)) mg/dl Calcium 9.9 (8.6-10.3) mg/dl Total Bilirubin 0.4 (0.2-1.0) mg/dl AST 25 (13-39) U/L ALT 12 (7-52) U/L Alkaline Phosphatase 60 (34-104) U/L Total Protein 7.6 (6.0-8.3) gm/dl Albumin 4.6 (3.4-5.0) gm/dl Globulin 3.0 (2.5-4.0) gm/dl Albumin/Globulin Ratio 1.5 (0.9-2) POC Ur Test (NEG) SARS-CoV-2, RNA, NAAT NEGATIVE (NEGATIVE) Blood Type Antibody Screen 07/24/22 07/24/22 Range/Units 14:42 14:42 WBC 5.61 (4.8-10.8) K/ul RBC 4.21 (4.20-5.40) M/uL Hgb 13.3 (12.0-16.0) g/dl Hct 37.6 (37.0-47.0) % MCV 89.3 (80.0-100.0) fL MCH 31.6 (25.0-34.0) pg MCHC 35.4 (32.0-36.0) g/dL RDW Std Deviation 37.0 (36.4-46.3) fL RDW Coeff of Taylor 11.4 L (11.5-14.5) % Plt Count 251 (130-400) K/uL MPV 9.3 L (9.4-12.4) fL PT (9.0-12.0) Seconds INR (0.9-1.1) APTT (21.0-31.0) Seconds PTT Ratio Sodium (136-145) mmol/L Potassium (3.5-5.1) mmol/L Chloride (98-107) mmol/L Carbon Dioxide (21-32) mmol/L Anion Gap (3-11) BUN (6-23) mg/dl Creatinine (0.6-1.2) mg/dl Est Cr Clr Drug Dosing ml/min Est GFR ( Amer) ml/min Est GFR (Non-Af Amer) ml/min BUN/Creatinine Ratio (10-20) Glucose (70-99(Fasting)) mg/dl Calcium (8.6-10.3) mg/dl Total Bilirubin (0.2-1.0) mg/dl AST (13-39) U/L ALT (7-52) U/L Alkaline Phosphatase (34-104) U/L Total Protein (6.0-8.3) gm/dl Albumin (3.4-5.0) gm/dl Globulin (2.5-4.0) gm/dl Albumin/Globulin Ratio (0.9-2) POC Ur Test (NEG) SARS-CoV-2, RNA, NAAT (NEGATIVE) Blood Type B Positive Antibody Screen NEGATIVE Discharge Data Consultations 07/24/22 14:37 ED Decision to Admit Stat Procedures Performed Operation Date: 07/24/22 12:30 Actual Procedures p Intramedullary Bijan Right Femur Fracture(Right) - Domenic Lynch MD Hospital Course (1) Fracture of proximal end of right femur: Plan Patient was admitted for observation overnight for pain control and to monitor status post surgery. She had done well through the night her pain is controlled with oral pain medications. Catheter was placed and removed this AM. She participated with physical therapy. She will be discharged home and follow-up with our office as an outpatient. She will also start outpatient physical therapy in the next few days. She will continue with range of motion of the right lower extremity as well as partial weightbearing on the right lower extremity with crutches. She will be on aspirin twice a day for DVT prophylaxis 81 mg for 30 days. Prescription was sent for diclofenac as well as narcotic, oxycodone for pain management. She will continue using ice and may use Tylenol in the interim for pain control. She was advised if any questions or concerns to contact the office immediately. She was given written instructions upon discharge. Patient verbalized understanding and is in agreement plan.
== END 2022-07-25 14:13 | disposition home or self-care (01) ==
LOC: ED 13:38 → OR 16:03 → 3N 16:03